=== PATIENT | male | born 1965 | race Caucasian/White ===

== ENCOUNTER 2022-08-05 20:11 | Emergency (ER) | payer MEDICAID ==
[~2022-08-05] VITALS: Ht 167.6 cm; Wt 98.0 kg
[2022-08-05 20:18] VITALS: BP 140/70
[2022-08-05] MEDS ORDERED: MAGNESIUM/ALUMINUM HYDROXIDE/SIMETHICONE 30ML UDC PO STA (22:29)
[2022-08-05] MEDS ORDERED: VISCOUS LIDOCAINE 2% 15 ML UDC PO STA (22:29)
[2022-08-06 01:05] LABS: BASOPHILS % 0.6 % (0.0-2.0); EOSINOPHILS % 2.2 % (0.0-5.0); HEMATOCRIT. 42.1 % (42.0-52.0); HEMOGLOBIN. 14.7 g/dL (14.0-18.0); LYMPHOCYTES % 43.5 % (20.0-50.0); MEAN CORPUSCULAR HEMOGLOBIN 30.6 pg (28.0-32.0); MEAN CORPUSCULAR VOLUME 87.9 fL (80.0-94.0); MEAN PLATELET VOLUME 9.2 fl (7.4-10.4); MONOCYTES % 5.9 % (2.0-8.0); NEUTROPHILS % 47.8 % (40.0-76.0); PLATELET 227 x1000/uL (130-400); RED BLOOD CELL COUNT 4.79 mill/uL (4.7-6.1); RED CELL DISTRIBUTION WIDTH 13.8 % (11.6-14.6)
[2022-08-06 01:13] LABS: CHLORIDE 106 mEq/L (98-107)
[2022-08-06 01:18] LABS: PROTHROMBIN TIME 10.3 sec (9.6-11.0)
[2022-08-06] MEDS ORDERED: FAMO-135 MT (04:04)
[2022-08-06] MEDS ORDERED: ONDA4TAB50 MT (04:04)
== END 2022-08-06 04:40 | disposition home or self-care (01) ==
LOC: EDBD 20:11 → ER 20:11
DX: R10.9 Unspecified abdominal pain (principal); F10.129 Alcohol abuse with intoxication, unspecified; Y90.9 Presence of alcohol in blood, level not specified; E11.9 Type 2 diabetes mellitus without complications; I10 Essential (primary) hypertension
CPT/HCPCS: 36415; 71045; 80053; 83605; 85025; 99284